=== PATIENT | female | born 1980 | race American Indian/Alaskan Native ===

== ENCOUNTER 2019-11-20 22:24 | Emergency (ER) | payer OTHER ==
--- NOTE | 2019-11-21 00:45 | XRay Report ---
CHEST 1 VIEW 11/21/2019 12:31 AM INDICATION / CLINICAL INFORMATION: Chest Pain. COMPARISON: None available. FINDINGS: SUPPORT DEVICES: None. HEART / MEDIASTINUM: No significant abnormality. LUNGS / PLEURA: No significant pulmonary or pleural abnormality. No pneumothorax. ADDITIONAL FINDINGS: There is moderate thoracic dextroscoliosis, status post shelby fixation. IMPRESSION: No acute abnormality of the chest. Signer Name: Paul Spivey MD Signed: 11/21/2019 12:41 AM Workstation Name: [id number]
--- NOTE | 2019-11-21 03:13 | Emergency Department Report ---
Minor Respiratory - [facility] Chief Complaint: Upper Respiratory Infection Stated Complaint: CHEST PAIN/SOB Time Seen by Provider: 11/21/19 03:04 Duration: 3 Days Pain Location: Chest Severity: moderate Minor Respiratory: Yes Rhinorrhea, Yes Able to Tolerate Fluids, Yes Cough, Yes Chest Pain (with cough), Yes Shortness of Breath, No Sore Throat, No Ear Pain, No Sick Contacts, No Hemoptysis, No Fever Other History: 39-year-old -[place] female presents to the emergency room complaining of chest hurts when coughing congestion shortness of breath 4 days. Patient denies any fever, sore throat she does admit to Raynaud's sneezing. Patient is taken nothing for her cough and nothing for her pain. Denies any past medical history. ED Review of Systems ROS: Stated complaint: CHEST PAIN/SOB Other details as noted in HPI ED Past Medical Hx - Past Medical History Previous Medical History?: No - Surgical History Past Surgical History?: Yes Additional Surgical History: Scoiliosis/Back Surgery - Social History Smoking Status: Never Smoker Substance Use Type: None Minor Respiratory Exam - Exam General: Vital signs noted. No distress. Alert and acting appropriately. Neurologic: Alert and oriented, no deficits. Musculoskeletal: Unremarkable. ED Course Vital Signs 11/20/19 22:34 Temperature 97.7 F Pulse Rate 87 Respiratory 15 Rate Blood Pressure 141/78 O2 Sat by Pulse 100 Oximetry ED Medical Decision Making - Radiology Data Radiology results: report reviewed Patient: YESENIA RIOS MR#: [id number] : 1980 Acct:[id number] Age/Sex: 39 / F ADM Date: 11/20/19 Loc: ED Attending Dr: Ordering Physician: JEFFREY KAY MD Date of Service: 11/21/19 Procedure(s): XR chest 1V ap Accession Number(s): [id number] cc: ED MD ELIZA Fluoro Time In Minutes: CHEST 1 VIEW 11/21/2019 12:31 AM INDICATION / CLINICAL INFORMATION: Chest Pain. COMPARISON: None available. FINDINGS: SUPPORT DEVICES: None. HEART / MEDIASTINUM: No significant abnormality. LUNGS / PLEURA: No significant pulmonary or pleural abnormality. No pneumothorax. ADDITIONAL FINDINGS: There is moderate thoracic dextroscoliosis, status post shelby fixation. IMPRESSION: No acute abnormality of the chest. Signer Name: Paul Spivey MD Signed: 11/21/2019 12:41 AM Workstation Name: [id number] Transcribed By: [place] Dictated By: Paul Spivey MD Electronically Authenticated By: Paul Spivey MD Signed Date/Time: 11/21/1940 DD/ TD/TT: - Medical Decision Making 39-year-old -[place] female presents to the emergency room complaining of chest hurts when coughing congestion shortness of breath 4 days. Patient denies any fever, sore throat she does admit to Raynaud's sneezing. Patient is taken nothing for her cough and nothing for her pain. Denies any past medical history. Chest x-ray is negative for any acute abnormalities. Patient is afebrile. Patient be discharged home with instructions to take [id number] Robitussin or Mucinex. She can take ibuprofen or Tylenol for chest wall pain. Follow-up with her primary care provider. Critical care attestation.: If time is entered above; I have spent that time in minutes in the direct care of this critically ill patient, excluding procedure time. ED Disposition Clinical Impression: URI, acute Disposition: DC-01 TO HOME OR SELFCARE Is pt being admited?: No Does the pt Need Aspirin: No Condition: Stable Instructions: Upper Respiratory Infection (ED) Additional Instructions: Take [id number] Robitussin Mucinex ibuprofen or Tylenol. Referrals: HUNTER SERNA MD [Primary Care Provider] - 3-5 Days
[2019-11-21 03:17] VITALS: BP 121/82
== END 2019-11-21 03:17 | disposition home or self-care (01) ==
LOC: ED 22:24
DX: J06.9 Acute upper respiratory infection, unspecified (principal); Z88.4 Allergy status to anesthetic agent
CPT/HCPCS: 71045; 93005; 93010